=== PATIENT | male | born 1975 | race Two or more races ===

== ENCOUNTER → 2018-12-23 | Emergency (ER) | payer OTHER | END | disposition left against medical advice (07) | LOC: ER 19:20 | DX: Z53.20 Procedure and treatment not carried out because of patient's decision for unspecified reasons (principal) ==

== ENCOUNTER 2023-09-30 03:06 | Emergency (ER) | payer OTHER ==
[~2023-09-30] VITALS: Ht 160 cm; Wt 72.6 kg
[2023-09-30] MEDS ORDERED: ZESTRIL2.5 MG (03:16)
[2023-09-30] MEDS ORDERED: ATORVASTATIN CA10 MG PO (03:16)
[2023-09-30] MEDS ORDERED: KETOROLAC TROMETHAMINE 30 MG VIAL IV STA (04:13)
[2023-09-30] MEDS ORDERED: MEPERIDINE HCL/PF 50 MG/ML VIAL IM STA (04:14)
[2023-09-30] MEDS ORDERED: TAMSULOSIN HCL 0.4 MG CAP PO STA (04:15)
[2023-09-30] MEDS ORDERED: HYOSCYAMINE SULFATE 0.125 MG TAB.SUBL SL ONE (04:15)
[2023-09-30] MEDS ORDERED: PROMETHAZINE HCL 50 MG/ML AMPUL IM STA (04:15)
[2023-09-30] MEDS ORDERED: PROMETHAZINE HCL 50 MG/ML AMPUL IM ONE (04:20)
[2023-09-30] MEDS ORDERED: KETOROLAC TROMETHAMINE 30 MG VIAL ONE (04:20)
[2023-09-30] MEDS ORDERED: TAMSULOSIN HCL 0.4 MG CAP PO ONE (04:20)
[2023-09-30] MEDS ORDERED: HYOSCYAMINE SULFATE 0.125 MG TAB.SUBL ONE (04:20)
[2023-09-30 05:04] LABS: HEMATOCRIT 43.3 % (39.0-48.0); HEMOGLOBIN 14.4 g/dL (13-16.00); MEAN CELL VOLUME 88.3 fL (80.0-100.00); MEAN CORPUSCULAR HEMOGLOBIN 29.4 pg (27.00-32.0); MEAN CORPUSCULAR HGB CONC 33.3 g/dl (32.0-36.0); PLATELET COUNT 286 K/uL (150-450); RED BLOOD COUNT 4.91 M/uL (4.00-6.00); RED CELL DISTRIBUTION WIDTH 12.8 % (11.5-14.5)
[2023-09-30 05:28] LABS: CALCIUM 9.4 mg/dL (8.5-10.1); CREATININE SERUM 1.25 mg/dL (0.70-1.30); GFR 61.39; POTASSIUM 4.22 mEq/L (3.5-5.1)
[2023-09-30 07:08] LABS: URINE APPEARANCE Clear; URINE BILIRRUBIN Negative (NEGATIVE); URINE BLOOD Large; URINE COLOR Yellow; URINE GLUCOSE Negative (NEGATIVE); URINE KETONE Negative (NEGATIVE); URINE LEUKOCYTE Negative; URINE NITRATE Negative; URINE PROTEIN Negative (NEGATIVE); URINE UROBILINOGEN 0.2 E.U./dl
[2023-09-30 07:09] LABS: URINE BACTERIA 12.5 uL (0.0-1933); URINE EPITHELIAL CELLS 3.2 uL (0.0-38.8); URINE RBC 252.3 uL (0.0-20.8); URINE WBC 6.7 uL (0.0-23.2)
[2023-09-30 07:13] LABS: URINE CAST 0.15 uL (0.0-1.40)
== END 2023-09-30 08:55 | disposition home or self-care (01) ==
LOC: ER 03:07
DX: N20.1 Calculus of ureter (principal); Z91.013 Allergy to seafood